=== PATIENT | female | born 1995 | race Caucasian/White ===

== ENCOUNTER 2016-10-09 10:31 | Outpatient (CLI) | payer MEDICAID | END 2016-10-09 10:32 | disposition home or self-care (01) | DX: R61 Generalized hyperhidrosis (principal) ==

== ENCOUNTER 2018-06-02 14:45 | Outpatient (CLI) | payer MEDICAID ==
[2018-06-02 20:00] LABS: BASOPHILS % (AUTO) 0.4 %; EOSINOPHILS # (AUTO) 0.1 10^3/uL (0.0-0.7); EOSINOPHILS % (AUTO) 2.3 %; HGB - HEMOGLOBIN 12.9 g/dL (12.0-16.0); LYMPHOCYTES # (AUTO) 2.6 10^3/uL (1.5-3.5); LYMPHOCYTES % (AUTO) 42.8 %; MEAN CORPUSCULAR HGB CONC 34.4 g/dL (32.0-36.0); MEAN CORPUSCULAR VOLUME 90.1 fL (81.0-99.0); MONOCYTES # (AUTO) 0.3 10^3/uL (0.0-1.0); MONOCYTES % (AUTO) 4.1 %; NEUTROPHILS # (AUTO) 3.1 10^3/uL (1.5-6.6); NEUTROPHILS % (AUTO) 50.4 %; PLT - PLATELET COUNT 198 10^3/uL (130-450); RED BLOOD COUNT 4.17 10^6/uL (4.20-5.40); RED CELL DISTRIBUTION WIDTH 13.2 % (12.0-15.0); WHITE BLOOD COUNT 6.2 x10^3/uL (4.8-10.8)
[2018-06-02 20:18] LABS: ALBUMIN 4.5 g/dL (3.2-5.5); ALBUMIN/GLOBULIN RATIO 1.6 (1.0-2.2); BILIRUBIN,TOTAL 0.5 mg/dL (0.2-1.0); CALCIUM 8.9 mg/dL (8.5-10.3); CREATININE 0.5 mg/dL (0.4-1.0); TOTAL PROTEIN 7.4 g/dL (6.7-8.2)
[2018-06-04 13:37] LABS: HEPATITIS C ANTIBODY REACTIVE (NON-REACTIVE)
[2018-06-05 19:47] LABS: HCV RNA QNT <1.18 NOT DETECTED Log IU/mL (NOT DETECTED); HCV RNA QUANT RT PCR <15 NOT DETECTED IU/mL (NOT DETECTED)
== END 2018-06-02 14:46 | disposition home or self-care (01) ==
LOC: LAB.N 14:45
PROVIDERS: ATTEND Nurse Practitioner Gerontology
DX: B19.20 Unspecified viral hepatitis C without hepatic coma (principal); Z13.9 Encounter for screening, unspecified
CPT/HCPCS: 36415; 80053; 81599; 84443; 85025; 86803; 87522

== ENCOUNTER 2018-10-10 11:00 | Emergency (ER) | payer MEDICAID ==
[2018-10-10 11:08] VITALS: BP 130/72
--- NOTE | 2018-10-10 12:22 | ED Physician Documentation ---
PD HPI URI - Stated complaint Stated Complaint: COLD SX - Chief complaint Chief Complaint: Heent - History obtained from History obtained from: Patient - History of Present Illness Timing - onset: Other (Sick for 2 days with cough and mild shortness of breath as well as fatigue but no fevers. She has had rhinorrhea and a sore throat. No possibility of . Her daughter is also sick.) Review of Systems Constitutional: denies: Fever, Chills Nose: reports: Rhinorrhea / runny nose Throat: reports: Sore throat Respiratory: reports: Cough PD PAST MEDICAL HISTORY - Past Medical History Past Medical History: Yes Psych: Depression - Past Surgical History Past Surgical History: No - Present Medications Home Medications: Ambulatory Orders Medication Instructions Recorded Confirmed Albuterol Sulf [Ventolin Hfa 1 - 2 puffs INH Q4HR PRN #1 inhaler 10/10/18 Inhaler] Buprenorphine HCl/Naloxone HCl 10/10/18 [Suboxone 8-2 mg Sl tab] Guaifenesin/Pseudoephedrne HCl 1 each PO BID PRN #20 tab.er.12h 10/10/18 [Mucinex D ER 600-60 mg Tablet] Hydrocodone/Chlorphen P-Stirex 5 ml PO BID PRN #90 ml 10/10/18 [Hydrocodone-Chlorphen ER Susp] predniSONE [Deltasone] 60 mg PO DAILY 5 Days tablet 10/10/18 - Allergies Allergies/Adverse Reactions: Allergies Allergy/AdvReac Type Severity Reaction Status Date / Time No Known Drug Allergies Allergy Verified 10/10/18 11:08 - Social History Does the pt smoke?: No Smoking Status: Never smoker Does the pt drink ETOH?: No Does the pt have substance abuse?: No - Immunizations Immunizations are current?: Yes PD ED PE NORMAL - Vitals Vital signs reviewed: Yes - General General: Alert and oriented X 3, No acute distress - HEENT HEENT: PERRL, EOMI, Ears normal, Pharynx benign (Cobblestoning but tonsils are normal) - Neck Neck: Supple, no meningeal sign, No bony TTP - Cardiac Cardiac: RRR, No murmur - Respiratory Respiratory: No respiratory distress, Other (Mild expiratory wheezes without focal findings) - Abdomen Abdomen: Non tender - Derm Derm: No rash - Neuro Neuro: Alert and oriented X 3, Normal speech Results - Vitals Vitals: Vital Signs - 24 hr 10/10/18 11:06 Temperature 36.0 C L Heart Rate 98 Respiratory 12 Rate Blood Pressure 130/72 O2 Saturation 95 Oxygen O2 Source Room air Departure - Departure Disposition: Home, Self Care Clinical Impression: Viral bronchitis Condition: Good Record reviewed to determine appropriate education?: Yes Instructions: ED Upper Resp Infec No Abx Tx Prescriptions: Albuterol Sulf [Ventolin Hfa Inhaler] 1 - 2 puffs INH Q4HR PRN #1 inhaler PRN Reason: Shortness Of Air/Wheezing Guaifenesin/Pseudoephedrne HCl [Mucinex D ER 600-60 mg Tablet] 1 each PO BID PRN #20 tab.er.12h PRN Reason: congestion Hydrocodone/Chlorphen P-Stirex [Hydrocodone-Chlorphen ER Susp] 5 ml PO BID PRN #90 ml PRN Reason: Cough predniSONE [Deltasone] 60 mg PO DAILY 5 Days tablet Comments: Return as needed for new or worsening symptoms. Drink plenty fluids. Follow-up with your doctor in a week if not better. Forms: Activity restrictions
== END 2018-10-10 12:35 | disposition home or self-care (01) ==
LOC: ED 11:00
DX: J20.8 Acute bronchitis due to other specified organisms (principal)
CPT/HCPCS: 99283

== ENCOUNTER 2019-04-20 10:50 | Outpatient (CLI) | payer MEDICAID ==
[2019-04-20 17:38] VITALS: BP 90/60
--- NOTE | 2019-04-20 17:38 | CONSULTATION NOTE ---
Information from patient questionnaire entered by Christine Paulino. I have reviewed and concur with the information entered by Christine Paulino. This document represents the service I personally performed and the decisions made by me, Yaz Mulligan MD, [facility]. - History of Present Illness Chief Complaint: Other (sleep paralysis) I had the pleasure of seeing Ms. Webster today regarding the possibility of her having a sleep disorder. As you know, she is a 23 year old lady who complains of sleep paralysis about 2 3 times a week. She even has them during naps. The episodes are scary because she is afraid that she would not be able to breath. Sometimes, they are preceded by tingly sensation. She also reports having hypnagogic hallucinations and nightmares for which she takes prazosin. She has occasional sudden weakness but not precipitated by laughter or when startled. The patient tells me that she normally goes to bed around 10 - 11 pm, and it takes her approximately 15 - 20 minutes to fall asleep. She has been told that she snores. She has never been observed to stop breathing in her sleep. She sleeps alone most of the time. She can recall waking up on the average of 3 - 4 times during the night. Most of the time she wakes up because of having to use the bathroom and bad dreams. She has never awakened because of her own snoring, choking, or having to gasp for air. There is not a lot of tossing and turning in her sleep. She talks in her sleep. In the morning she usually gets up out of the bed around 7 - 8 a.m. not feeling refreshed nor rested. She usually has morning headache. During the day she complains of feeling sleepy and fatigued. Her score on [place] Sleepiness Scale is 14 out of 24. She has fallen asleep while driving and has gone out of the darren. She usually takes naps during the day. Upon falling asleep during the day she reports having vivid dreams. She has symptoms of restless leg syndrome. She reports having impaired concentration during the day. [place] Sleepiness Scale Score: 14 - Past Medical History Past Medical History: Claustrophobia, Anxiety, Depression, Mood disorder, Other (opiod addiction) - Allergies/Home Medications Medications: suboxone and prazosin Allergies: NKDA - Social History The patient's occupation is a [employer]. Patient is Single and lives in [place]. Smoked in the past 12 months: Yes Cigarettes per day (20/pack): 10 Years of smokin Quit Date: 2017 Smoking Pack Years: 2.5 Alcohol use: No Caffeine use: Yes Amount and frequency: 1 cup - Family History Family history of sleep disordered breathing: Yes Family Hx Sleep Apnea: Mother: Snoring, Father: Snoring - Review of Systems Cardiovascular: reports: other: (endocarditis in the past) Respiratory: reports: shortness of breath Gastrointestinal: denies: heartburn, difficulty swallowing, nausea, vomitting, diarrhea, abdominal pain, other: Urinary: reports: frequency Neurological: reports: headaches Psychiatric: reports: anxiety, depression, mood disorder, claustrophobia, other: Ear/Nose/Throat: reports: tonsillectomy, wisdom teeth removed Endocrine: reports: increased appetite, increased urination Musculoskeletal: denies: joint pain, neck pain, back pain, joint swelling, muscle pain or cramping, mobility problems, other: Immunologic: denies: sneezing, rash, itching, allergies to food or environment, other: - Physical Examination Vital signs obtained and documented by: Dr. Mulligan Blood Pressure: 90/60 Heart Rate: 80 O2 Saturation: 98 Height: 5 ft 3 in Weight (kg): 97.069 kg Body Mass Index: 37.9 BMI Classification: Class 2 Neck circumference: 15 Mood/affect: normal HEENT: No craniofacial malformation Nostrils: patent to airflow Turbinates: normal Septum: midline Mouth and throat: narrow oropharynx Soft palate: long Hard palate: normal Uvula: normal Tongue: normal in size Tonsils: absent bilaterally Chin and jaw: normal size and position Neck: normal w/o lymphadenopathy or thyromegaly Heart: regular rate and rhythm Lungs: clear bilaterally Abdomen: soft Extremities: no edema or clubbing Neurologic: intact - Impression 1. Hypersomnia, with symptoms of sleep paralysis and hypnagogic hallucination. The patient may also have cataplexy but it is not clear. Narcolepsy is very possible. Therefore, I will order both the in-laboratory polysomnography and multiple sleep latency test (MSLT). Sleep-disordered breathing is a possibility given snore, narrow oropharynx, and obesity. I informed the patient of what the sleep studies involve and after some discussion, she agreed to proceed. - Plan 1. Schedule polysomnography and multiple sleep latency test (MSLT). 2. Avoid long distance driving or when feeling sleepy. 3. Avoid alcohol, sedative and muscle relaxant around bedtime. 4. Attempt to lose weight.
== END 2019-04-20 10:51 | disposition home or self-care (01) ==
LOC: SC 10:50
PROVIDERS: ATTEND Internal Medicine Pulmonary Disease
DX: G47.10 Hypersomnia, unspecified (principal); F51.5 Nightmare disorder
CPT/HCPCS: 99203; 99212

== ENCOUNTER 2019-08-31 19:37 | Outpatient (CLI) | payer MEDICAID | END 2019-08-31 19:38 | disposition home or self-care (01) | LOC: SC 19:37 | PROVIDERS: ATTEND Internal Medicine Pulmonary Disease | DX: G47.10 Hypersomnia, unspecified (principal); G47.53 Recurrent isolated sleep paralysis; R44.2 Other hallucinations | CPT/HCPCS: 95810 ==

== ENCOUNTER 2019-09-01 05:55 | Outpatient (CLI) | payer MEDICAID | END 2019-09-01 05:56 | disposition home or self-care (01) | LOC: SC 05:55 | PROVIDERS: ATTEND Internal Medicine Pulmonary Disease | DX: G47.10 Hypersomnia, unspecified (principal); G47.53 Recurrent isolated sleep paralysis | CPT/HCPCS: 95805 ==

== ENCOUNTER 2019-09-01 06:15 | Outpatient (CLI) | payer MEDICAID ==
[2019-09-01 11:01] LABS: MUDS CUTOFF CONCENTRATIONS CUTOFF CONC BELOW:
[2019-09-01 12:55] LABS: AMPHETAMINE SCREEN,URINE NEGATIVE (NEGATIVE); BENZODIAZEPINES SCREEN, URINE NEGATIVE (NEGATIVE); COCAINE SCREEN URINE NEGATIVE (NEGATIVE); METHADONE SCREEN, URINE NEGATIVE (NEGATIVE); METHAMPHETAMINES SCREEN, URINE NEGATIVE (NEGATIVE); OPIATE SCREEN, URINE NEGATIVE (NEGATIVE); OXYCODONE SCREEN, URINE NEGATIVE (NEGATIVE); PROPOXYPHENE SCREEN, URINE NEGATIVE (NEGATIVE); TRICYCLIC ANTIDEPRESSANT,URINE NEGATIVE (NEGATIVE)
== END 2019-09-01 23:59 | disposition home or self-care (01) ==
LOC: LAB.R 06:15
PROVIDERS: ATTEND Internal Medicine Pulmonary Disease
DX: R41.82 Altered mental status, unspecified (principal)
CPT/HCPCS: 80306

== ENCOUNTER 2019-09-04 20:07 | Emergency (ER) | payer MEDICAID ==
[2019-09-04 20:16] VITALS: BP 140/83
[2019-09-04] MEDS ORDERED: PSEUDOEPHEDRINE 30 MG TABLET PO STA (21:19)
--- NOTE | 2019-09-04 21:20 | ED Physician Documentation ---
PD HPI URI - Stated complaint Stated Complaint: SORE THROAT, BODY ACHES, EARS PLUGGED - Chief complaint Chief Complaint: Heent - History obtained from History obtained from: Patient - History of Present Illness Timing - onset: How many weeks ago (1) Timing duration: Weeks (1) Timing details: Gradual onset Pain level max: 5 Pain level now: 5 Associated symptoms: Nasal congestion, Sore throat. No: Fever, Rhinorrhea, Swollen nodes, Dry cough Contributing factors: No: Sick contact, Travel, Immunocompromised, Unimmunized, COPD / asthma Improves by: Other (motrin) Worsened by: Other (sleeping, worse in the am) Review of Systems Constitutional: denies: Fever Respiratory: denies: Cough GI: denies: Vomiting : denies: Now EGA Skin: denies: Rash PD PAST MEDICAL HISTORY - Past Medical History Past Medical History: No Cardiovascular: None Respiratory: None Neuro: None Endocrine/Autoimmune: None GI: None FACILITY SERVICE ASSOCIATE: None : None HEENT: None Psych: Depression Musculoskeletal: None Derm: None - Past Surgical History Past Surgical History: No - Present Medications Home Medications: Ambulatory Orders Medication Instructions Recorded Confirmed Albuterol Sulf [Ventolin Hfa 1 - 2 puffs INH Q4HR PRN #1 inhaler 10/10/18 Inhaler] Buprenorphine HCl/Naloxone HCl 10/10/18 [Suboxone 8-2 mg Sl tab] Guaifenesin/Pseudoephedrne HCl 1 each PO BID PRN #20 tab.er.12h 10/10/18 [Mucinex D ER 600-60 mg Tablet] Hydrocodone/Chlorphen P-Stirex 5 ml PO BID PRN #90 ml 10/10/18 [Hydrocodone-Chlorphen ER Susp] predniSONE [Deltasone] 60 mg PO DAILY 5 Days tablet 10/10/18 Cetirizine HCl/Pseudoephedrine 1 each PO BID PRN #30 tab.er.12h 09/04/19 [Zyrtec-D Tablet] - Allergies Allergies/Adverse Reactions: Allergies Allergy/AdvReac Type Severity Reaction Status Date / Time No Known Drug Allergies Allergy Verified 09/04/19 20:16 - Social History Does the pt smoke?: No Smoking Status: Never smoker Does the pt drink ETOH?: No Does the pt have substance abuse?: Yes Substance Use and Type: Heroin, Prescription Pills - Immunizations Immunizations are current?: Yes - POLST Patient has POLST: No PD ED PE NORMAL - Vitals Vital signs reviewed: Yes - General General: Alert and oriented X 3, No acute distress, Well developed/nourished - HEENT HEENT: PERRL, Ears normal, Moist mucous membranes, Other (Posterior pharyngeal cobblestoning. No exudates. Normal phonation. No trismus. Uvula midline) - Neck Neck: Supple, no meningeal sign, No adenopathy - Cardiac Cardiac: RRR, Strong equal pulses - Respiratory Respiratory: No respiratory distress, Clear bilaterally - Abdomen Abdomen: Soft, Non tender, Non distended - Derm Derm: Warm and dry, No rash - Neuro Neuro: Alert and oriented X 3 - Psych Psych: Normal mood, Normal affect Results - Vitals Vitals: Vital Signs - 24 hr 09/04/19 20:13 Temperature 36.5 C Heart Rate 93 Respiratory 18 Rate Blood Pressure 140/83 H O2 Saturation 100 Oxygen O2 Source Room air - Labs Labs: Laboratory Tests 09/04/19 20:20 Group A Strep Rapid Negative PD MEDICAL DECISION MAKING - ED course Complexity details: considered differential, d/w patient ED course: Patient with what appears to be postnasal drip. Will place on decongestants for home. No evidence of strep pharyngitis. No evidence of abscess. Patient counseled regarding signs and symptoms for which I believe and urgent re- evaluation would be necessary. Patient with good understanding of and agreement to plan and is comfortable going home at this time This document was made in part using voice recognition software. While efforts are made to proofread this document, sound alike and grammatical errors may occur. Departure - Departure Disposition: 01 Home, Self Care Clinical Impression: Post-nasal drip Condition: Good Instructions: ED Viral Syndrome Follow-Up: Carla Martinez ARNP [Primary Care Provider] - Within 1 week Prescriptions: Cetirizine HCl/Pseudoephedrine [Zyrtec-D Tablet] 1 each PO BID PRN #30 tab.er.12h PRN Reason: nasal congestion Comments: You appear to be having postnasal drip. Try the decongestants. Follow-up with your doctor as needed for further care. Discharge Date/Time: 09/04/19 21:32
== END 2019-09-04 21:32 | disposition home or self-care (01) ==
LOC: ED 20:07
DX: R09.82 Postnasal drip (principal)
CPT/HCPCS: 87070; 87430; 99283; 99284; A9270

== ENCOUNTER 2019-10-18 11:12 | Outpatient (CLI) | payer MEDICAID ==
--- NOTE | 2019-10-18 19:54 | SLEEP CARE CONSULTATION ---
Information from patient questionnaire entered by Christine Paulino. I have reviewed and concur with the information entered by Christine Paulino. This document represents the service I personally performed and the decisions made by me, Yaz Mulligan MD, [facility]. History of Present Illness Initial [place] Sleepiness Scale score: 14 Current [place] Sleepiness Scale score: 16 Additional HPI information: HPI: returned for follow up of the sleep study (polysomnography + multiple sleep latency test) she had on 08/3109/01/19. The polysomnography was normal. There was no significant sleep disordered breathing or periodic leg movement of sleep. Her multiple sleep latency test (MSLT) showed reduced mean sleep latency of 3.5 minutes. There was sleep onset REM period in one nap. The patient did take Suboxone the morning of the test. Her urine tox screen was negative. The patient was informed of these findings. I explained to her that her night sleep study was normal but that the MSLT was abnormal for short mean sleep latency consistent with her reports of excessive daytime sleepiness. The one sleep onset REM period is equivocal for narcolepsy. Allergies and Home Medications Drug allergies reviewed: Yes Home medication list reviewed: Yes (buprenorphrine, trazodone) Review of Systems Review of systems same as previous: Yes Physical Exam Height: 5 ft 3 in Weight: 214 lb Body Mass Index: 37.9 BMI Classification: Obesity Class 2 Impression and Plan IMPRESSION: 1. 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 Her main complaint is actually frequent sleep paralysis. She also has excessive daytime sleepiness. She has had the symptoms all her life. The fact that she is also on Suboxone makes the diagnosis less clear. I will treat her daytime hypersomnolence with modafinil. Her sleep paralysis may improve with an antidepressant. Because she is already under psychiatric care from a local provider, I will leave the decision to the person. Getting adequate sleep is helpful. PLAN: 1. Prescription made for modafinil 100 200 mg in the morning on as needed basis daytime sleepiness. 2. Discuss with her psychiatrist provider regarding antidepressants. Effexor may help with sleep paralysis. 3. Utilize non-hormonal control method. She states that she is planning to use copper IUD. 4. Avoid sleeping supine. 5. Allow at least 8 hours for sleeping at night. 6. Return in one - two months for follow up. I will assess her response to the medication at that time. I spent 100% of this visit face to face with the patient with greater than 50% of this was spent time counseling the patient and coordination of care.
== END 2019-10-18 11:13 | disposition home or self-care (01) ==
LOC: SC 11:12
PROVIDERS: ATTEND Internal Medicine Pulmonary Disease
DX: G47.10 Hypersomnia, unspecified (principal); G47.53 Recurrent isolated sleep paralysis
CPT/HCPCS: 99212; 99213

== ENCOUNTER 2019-12-21 16:49 | Outpatient (CLI) | payer MEDICAID ==
--- NOTE | 2019-12-21 14:38 | SLEEP CARE CONSULTATION ---
Information from patient questionnaire entered by Christine Paulino. I have reviewed and concur with the information entered by Christine Paulino. This document represents the service I personally performed and the decisions made by me, Yaz Mulligan MD, [facility]. History of Present Illness Reason for follow up: one month (MEDICATION CHECK IN) Prior sleep studies: Yes HPI additional information: To minimize the risk of COVID-19 exposure, the patient has requested and con sented to this telephone visit. The patient also agrees to having his insurance billed. HPI: Ms. Webster was called for follow up on modafinil prescribed for suspected narcolepsy without cataplexy. The diagnosis was not clear because she also take Suboxone which could cause excessive daytime sleepiness. She also checked with her psychiatrist prior to taking the medication. The patient reports jitteriness and feeling social awkwardness on the medication. She stopped taking it after 2 doses. Her psychiatrist started her on Wellbutrin which helps with the sleep paralysis. Subjective Initial [place] Sleepiness Scale score: 14 Allergies and Home Medications Drug allergies reviewed: Yes Home medication list reviewed: Yes Review of Systems Review of systems same as previous: Yes Physical Exam Height: 5 ft 3 in Impression and Plan IMPRESSION: 1. Sleep Paralysis, improved with Wellbutrin. The diagnosis of narcolepsy will remain uncertain at this time. She should be reevaluated in the future if she come off all psychotropic meds. PLAN: 1. Discontinue modafinil as the patient has already done. 2. Continue to follow up with psychiatrist. 3. Return to the sleep clinic on as needed basis. Visit Type: Telehealth Phone Location of Provider: Home Patient agrees and consents to this telehealth visit type: Yes Time Spent with Patient (minutes): 6 Provider Statement: I spent 100% of the Telehealth Phone Call with the patient with greater than 50% spent counseling the patient and coordination of care.
== END 2019-12-21 16:50 | disposition home or self-care (01) ==
LOC: SC 16:49
PROVIDERS: ATTEND Internal Medicine Pulmonary Disease
DX: G47.53 Recurrent isolated sleep paralysis (principal)

== ENCOUNTER 2020-03-10 08:00 | Outpatient (CLI) | payer MEDICAID ==
[2020-03-14 10:13] LABS: HSV 2 IGG TYPE SPECIFIC AB <0.90 index
== END 2020-03-10 23:59 | disposition home or self-care (01) ==
LOC: LAB.WCP 08:00
PROVIDERS: ATTEND Nurse Practitioner Family
DX: B00.9 Herpesviral infection, unspecified (principal)
CPT/HCPCS: 36415; 81599; 86695; 86696

== ENCOUNTER 2020-10-18 12:38 | Emergency (ER) | payer MEDICAID ==
--- NOTE | 2020-10-18 13:27 | ED Physician Documentation ---
History of Present Illness - Stated complaint Stated Complaint: SWELLING - Chief complaint Chief Complaint: General - History obtained from History obtained from: Patient - History of Present Illness Pain level max: 3 Pain level now: 2 - Additonal information Additional information: Patient is a 25-year-old female who presents to the emergency department stating that she has had swelling when she wakes up in the morning for the past week or so. She states her hands feel very swollen and tight. The tight feeling in her hands has been present for several weeks. No recent illnesses or injury. She states occasionally she feels a tightness in her chest, this normally lasts for a few minutes at a time. Nothing makes it better or worse. No fevers. No chills. No nausea or vomiting. No abdominal pain. The patient's only home medication is Suboxone. Review of Systems Ten Systems: 10 systems reviewed and negative Constitutional: denies: Fever, Chills Ears: denies: Ear pain Nose: denies: Rhinorrhea / runny nose, Congestion Throat: denies: Sore throat Cardiac: denies: Chest pain / pressure Respiratory: denies: Cough GI: denies: Nausea, Vomiting, Diarrhea Skin: denies: Rash Musculoskeletal: denies: Neck pain, Back pain Neurologic: denies: Headache PD PAST MEDICAL HISTORY - Past Medical History Cardiovascular: None Respiratory: None Neuro: None Endocrine/Autoimmune: None GI: None PARADICHLOROBENZENE TENDER: None : None HEENT: None Psych: Depression Musculoskeletal: None Derm: None - Past Surgical History Past Surgical History: No - Present Medications Home Medications: Ambulatory Orders Medication Instructions Recorded Confirmed Albuterol Sulf [Ventolin Hfa 1 - 2 puffs INH Q4HR PRN #1 inhaler 10/10/18 Inhaler] Buprenorphine HCl/Naloxone HCl 10/10/18 [Suboxone 8-2 mg Sl tab] Guaifenesin/Pseudoephedrne HCl 1 each PO BID PRN #20 tab.er.12h 10/10/18 [Mucinex D ER 600-60 mg Tablet] Hydrocodone/Chlorphen P-Stirex 5 ml PO BID PRN #90 ml 10/10/18 [Hydrocodone-Chlorphen ER Susp] predniSONE [Deltasone] 60 mg PO DAILY 5 Days tablet 10/10/18 Cetirizine HCl/Pseudoephedrine 1 each PO BID PRN #30 tab.er.12h 09/04/19 [Zyrtec-D Tablet] predniSONE [Deltasone] 40 mg PO DAILY #10 tablet 10/18/20 - Allergies Allergies/Adverse Reactions: Allergies Allergy/AdvReac Type Severity Reaction Status Date / Time No Known Drug Allergies Allergy Verified 10/18/20 12:49 - Social History Does the pt smoke?: No Smoking Status: Never smoker Does the pt drink ETOH?: No Does the pt have substance abuse?: Yes - Immunizations Immunizations are current?: Yes - POLST Patient has POLST: No PD ED PE NORMAL - Vitals Vital signs reviewed: Yes - General General: Alert and oriented X 3, No acute distress, Well developed/nourished - HEENT HEENT: PERRL, Moist mucous membranes - Neck Neck: Supple, no meningeal sign - Cardiac Cardiac: RRR, Strong equal pulses - Respiratory Respiratory: No respiratory distress, Clear bilaterally - Abdomen Abdomen: Soft, Non tender, Non distended - Derm Derm: Warm and dry, No rash - Extremities Extremities: No edema - Neuro Neuro: Alert and oriented X 3 - Psych Psych: Normal mood, Normal affect Results - Vitals Vitals: Vital Signs - 24 hr 10/18/20 10/18/20 10/18/20 12:43 15:43 16:24 Temperature 36.0 C L 36.9 C 36.1 C L Heart Rate 89 81 78 Respiratory 16 18 18 Rate Blood Pressure 144/59 H 120/66 119/69 O2 Saturation 97 98 99 Oxygen O2 Source Room air - Labs Labs: Laboratory Tests 10/18/20 10/18/20 10/18/20 14:20 14:20 14:20 WBC 7.3 RBC 4.38 Hgb 12.9 Hct 39.1 MCV 89.3 MCH 29.5 MCHC 33.0 RDW 12.1 Plt Count 185 MPV 10.2 Neut # (Auto) 3.6 Lymph # (Auto) 3.0 [place] # (Auto) 0.5 Eos # (Auto) 0.1 Baso # (Auto) 0.1 Absolute Nucleated RBC 0.00 Nucleated RBC % 0.0 Sodium 135 Potassium 3.7 Chloride 105 Carbon Dioxide 22 Anion Gap 8.0 BUN 14 Creatinine 0.6 Estimated GFR (MDRD) 121 Glucose 88 Calcium 9.2 Total Bilirubin 0.5 AST 22 ALT 25 Alkaline Phosphatase 50 Troponin I High Sens < 2.3 L Total Protein 5.5 L Albumin < 1.0 L Globulin 4.5 H Albumin/Globulin Ratio 0.2 L Lipase 28 Urine Color Urine Clarity Urine pH Ur Specific [place] Urine Protein Urine Glucose (UA) Urine Ketones Urine Occult Blood Urine Nitrite Urine Bilirubin Urine Urobilinogen Ur Leukocyte Esterase Ur Microscopic Review Urine Culture Comments 10/18/20 15:20 WBC RBC Hgb Hct MCV MCH MCHC RDW Plt Count MPV Neut # (Auto) Lymph # (Auto) [place] # (Auto) Eos # (Auto) Baso # (Auto) Absolute Nucleated RBC Nucleated RBC % Sodium Potassium Chloride Carbon Dioxide Anion Gap BUN Creatinine Estimated GFR (MDRD) Glucose Calcium Total Bilirubin AST ALT Alkaline Phosphatase Troponin I High Sens Total Protein Albumin Globulin Albumin/Globulin Ratio Lipase Urine Color YELLOW Urine Clarity CLEAR Urine pH 6.0 Ur Specific [place] 1.025 Urine Protein NEGATIVE Urine Glucose (UA) NEGATIVE Urine Ketones NEGATIVE Urine Occult Blood NEGATIVE Urine Nitrite NEGATIVE Urine Bilirubin NEGATIVE Urine Urobilinogen 0.2 (NORMAL) Ur Leukocyte Esterase NEGATIVE Ur Microscopic Review NOT INDICATED Urine Culture Comments NOT INDICATED PD MEDICAL DECISION MAKING - ED course Complexity details: reviewed results, re-evaluated patient, considered differential, d/w patient ED course: The cause of her symptoms are unclear. The hands via the pictures that she showed me appear to be more consistent with allergic reaction. We will trial on steroids for this. Her albumin is less than 1, unclear etiology. There is no protein in her urine. Doubt nephrotic syndrome. Possible gastroenteropathy issue? Possible lab error. We will have her recheck this with her doctor next week. Patient is well-appearing, nontoxic. Afebrile. Patient counseled regarding signs and symptoms for which I believe and urgent re-evaluation would be necessary. Patient with good understanding of and agreement to plan and is comfortable going home at this time This document was made in part using voice recognition software. While efforts are made to proofread this document, sound alike and grammatical errors may occur. Departure - Departure Disposition: 01 Home, Self Care Clinical Impression: Hypoalbuminemia Allergic reaction Qualifiers: Encounter type: initial encounter Qualified Code(s): T78.40XA - Allergy, unspecified, initial encounter Condition: Good Instructions: ED Allergic Reaction General Other Follow-Up: Remy Wyatt DO [Primary Care Provider] - Within 1 week Prescriptions: predniSONE [Deltasone] 40 mg PO DAILY #10 tablet Comments: The cause of your symptoms is unclear today. We will start you on steroids for the rash on the hands. We will see how this progresses. Your albumin levels are also very low. These should be rechecked next week with your doctor to see if they remain low. You do not have any protein in your urine today. The cause of the low albumin is unclear at this time and will need further work-up if it is still present on your laboratory testing upon recheck. Discharge Date/Time: 10/18/20 16:29
[2020-10-18] MEDS ORDERED: predniSONE 20 MG TABLET PO STA (13:28)
--- NOTE | 2020-10-18 13:45 | XRAY Report ---
PROCEDURE: Chest 1 View X-Ray INDICATIONS: chest pain TECHNIQUE: One view of the chest was acquired. COMPARISON: None FINDINGS: Surgical changes and devices: None. Lungs and pleura: No pleural effusions or pneumothorax. Lungs are clear. Mediastinum: Mediastinal contours appear normal. Heart size is normal. Bones and chest wall: No suspicious bony lesions. Overlying soft tissues appear unremarkable. IMPRESSION: No acute process. Reviewed by: Loi Silva MD on 10/18/2020 1:44 PM [facility] Approved by: Loi Silva MD on 10/18/2020 1:44 PM [facility] Station ID: [id number]
[2020-10-18 14:25] LABS: BASOPHILS # (AUTO) 0.1 10^3/uL (0.0-0.1); BASOPHILS % (AUTO) 0.7 %; EOSINOPHILS # (AUTO) 0.1 10^3/uL (0.0-0.7); EOSINOPHILS % (AUTO) 1.5 %; HGB - HEMOGLOBIN 12.9 g/dL (12.0-16.0); LYMPHOCYTES % (AUTO) 41.3 %; MEAN CORPUSCULAR HEMOGLOBIN 29.5 pg (27.0-31.0); MEAN CORPUSCULAR VOLUME 89.3 fL (81.0-99.0); MEAN PLATELET VOLUME 10.2 fL (7.9-10.8); MONOCYTES # (AUTO) 0.5 10^3/uL (0.0-1.0); MONOCYTES % (AUTO) 7.1 %; NEUTROPHILS # (AUTO) 3.6 10^3/uL (1.5-6.6); NEUTROPHILS % (AUTO) 48.9 %; PLT - PLATELET COUNT 185 10^3/uL (130-450); RED BLOOD COUNT 4.38 10^6/uL (4.20-5.40); RED CELL DISTRIBUTION WIDTH 12.1 % (12.0-15.0); WHITE BLOOD COUNT 7.3 x10^3/uL (4.8-10.8)
[2020-10-18 14:49] LABS: ALKALINE PHOSPHATASE 50 IU/L (42-121); ALT ALANINE AMINOTRANSFERASE 25 IU/L (10-60); AST ASPARTATE AMINOTRANSFERASE 22 IU/L (10-42); BILIRUBIN,TOTAL 0.5 mg/dL (0.2-1.0); CALCIUM 9.2 mg/dL (8.5-10.3); CARBON DIOXIDE - CO2 22 mmol/L (21-32); CHLORIDE 105 mmol/L (101-111); GLUCOSE 88 mg/dL (70-100); TOTAL PROTEIN 5.5 g/dL (6.7-8.2)
[2020-10-18 14:50] LABS: ALBUMIN < 1.0 g/dL (3.2-5.5); ALBUMIN/GLOBULIN RATIO 0.2 (1.0-2.2)
[2020-10-18 15:43] LABS: BILIRUBIN,URINE NEGATIVE (NEGATIVE); CLARITY,URINE CLEAR (CLEAR); GLUCOSE, URINE (UA) NEGATIVE (NEGATIVE); KETONES,URINE (UA) NEGATIVE (NEGATIVE); LEUKOCYTE ESTERASE, URINE NEGATIVE (NEGATIVE); NITRITE,URINE NEGATIVE (NEGATIVE); OCCULT BLOOD,URINE NEGATIVE (NEGATIVE); PROTEIN,URINE NEGATIVE (NEGATIVE); UROBILINOGEN,URINE 0.2 (NORMAL) E.U./dL (NORMAL)
[2020-10-18 16:01] LABS: BUN - BLOOD UREA NITROGEN 14 mg/dL (6-20); CREATININE 0.6 mg/dL (0.4-1.0)
[2020-10-18 16:02] LABS: LIPASE 28 U/L (22-51)
[2020-10-18 16:24] VITALS: BP 119/69
== END 2020-10-18 16:29 | disposition home or self-care (01) ==
LOC: ED 12:38
DX: T78.40XA Allergy, unspecified, initial encounter (principal); E88.09 Other disorders of plasma-protein metabolism, not elsewhere classified
CPT/HCPCS: 36415; 71045; 80053; 81003; 83690; 84484; 85025; 93005; 99284; J7512; 81001; 87086

== ENCOUNTER 2020-10-31 07:00 | Outpatient (CLI) | payer MEDICAID ==
[2020-10-31 12:13] LABS: HGB - HEMOGLOBIN 11.7 g/dL (12.0-16.0); MEAN CORPUSCULAR HEMOGLOBIN 29.6 pg (27.0-31.0); MEAN CORPUSCULAR HGB CONC 32.7 g/dL (32.0-36.0); MEAN CORPUSCULAR VOLUME 90.6 fL (81.0-99.0); MEAN PLATELET VOLUME 10.7 fL (7.9-10.8); RED BLOOD COUNT 3.95 10^6/uL (4.20-5.40); RED CELL DISTRIBUTION WIDTH 11.9 % (12.0-15.0); WHITE BLOOD COUNT 5.2 x10^3/uL (4.8-10.8)
[2020-10-31 12:24] LABS: CRP - C-REACTIVE PROTEIN < 1.0 mg/dL (0-1.0)
[2020-10-31 12:25] LABS: URIC ACID 4.5 mg/dL (2.6-7.2)
[2020-10-31 12:37] LABS: RHEUMATOID FACTOR NEGATIVE (Negative)
[2020-11-01 12:18] LABS: HEPATITIS B SURFACE ANTIGEN NON-REACTIVE (NON-REACTIVE)
[2020-11-02 13:07] LABS: DNA (DS) ANTIBODY 1 IU/mL
[2020-11-02 22:51] LABS: CYCLIC CITRULL PEPTIDE CCP IGG <16 UNITS
[2020-11-03 08:06] LABS: ANA SCREEN NEGATIVE (NEGATIVE)
[2020-11-04 16:17] LABS: HCV RNA QUANT RT PCR <15 NOT DETECTED IU/mL
== END 2020-10-31 23:59 | disposition home or self-care (01) ==
LOC: LAB.WCP 07:00
PROVIDERS: ATTEND Family Medicine
DX: E88.09 Other disorders of plasma-protein metabolism, not elsewhere classified (principal); R22.30 Localized swelling, mass and lump, unspecified upper limb; M25.50 Pain in unspecified joint; B19.20 Unspecified viral hepatitis C without hepatic coma
CPT/HCPCS: 36415; 84443; 84550; 85025; 85027; 85651; 86038; 86140; 86200; 86225; 86430; 87340; 87522

== ENCOUNTER 2020-11-06 08:00 | Outpatient (CLI) | payer MEDICAID ==
[2020-11-06 12:38] LABS: TOTAL VOLUME 24HRS,URINE 700 mL
[2020-11-06 12:56] LABS: TOTAL PROTEIN,URINE TIMED < 6 mg/dL
[2020-11-07 23:17] LABS: CREATININE 24 HOUR,URINE 1821 mg/24h (600-1800); CREATININE,URINE 260.2 mg/dL
== END 2020-11-06 23:59 | disposition home or self-care (01) ==
LOC: LAB.R 08:00
PROVIDERS: ATTEND Family Medicine
DX: E88.09 Other disorders of plasma-protein metabolism, not elsewhere classified (principal)
CPT/HCPCS: 82570; 84156

== ENCOUNTER 2020-11-15 08:00 | Outpatient (CLI) | payer MEDICAID ==
[2020-11-15 18:25] LABS: CALCIUM 9.3 mg/dL (8.5-10.3); CREATININE 0.6 mg/dL (0.4-1.0); POTASSIUM 3.7 mmol/L (3.5-5.0)
[2020-11-16 10:26] LABS: HIV AG/AB 4TH GEN NON-REACTIVE (NON-REACTIVE)
[2020-11-16 12:17] LABS: HEPATITIS C ANTIBODY REACTIVE (NON-REACTIVE)
[2020-11-17 20:56] LABS: HCV RNA QNT <1.18 NOT DETECTED Log IU/mL (NOT DETECTED); HCV RNA QUANT RT PCR <15 NOT DETECTED IU/mL (NOT DETECTED)
== END 2020-11-15 23:59 | disposition home or self-care (01) ==
LOC: LAB.WCP 08:00
PROVIDERS: ATTEND Family Medicine
DX: R60.9 Edema, unspecified (principal); Z11.3 Encounter for screening for infections with a predominantly sexual mode of transmission; N39.0 Urinary tract infection, site not specified
CPT/HCPCS: 36415; 80048; 86592; 86593; 86780; 86803; 87086; 87181; 87389

== ENCOUNTER 2021-01-22 08:00 | Outpatient (CLI) | payer MEDICAID ==
[2021-01-22 13:45] LABS: BILIRUBIN,URINE NEGATIVE (NEGATIVE); GLUCOSE, URINE (UA) NEGATIVE (NEGATIVE); KETONES,URINE (UA) NEGATIVE (NEGATIVE); LEUKOCYTE ESTERASE, URINE NEGATIVE (NEGATIVE); NITRITE,URINE POSITIVE (NEGATIVE); OCCULT BLOOD,URINE NEGATIVE (NEGATIVE); PH,URINE 5.5 PH (5.0-7.5); PROTEIN,URINE NEGATIVE (NEGATIVE); UROBILINOGEN,URINE 0.2 (NORMAL) E.U./dL (NORMAL)
[2021-01-22 13:46] LABS: CLARITY,URINE HAZY (CLEAR)
[2021-01-22 14:01] LABS: BACTERIA,URINE Many /HPF (None Seen); RBC,URINE 0-5 /HPF (0-5); SQUAMOUS EPITHELIAL CELL,UR MANY Squamous (<= Few)
[2021-01-22 14:02] LABS: AMORPHOUS SEDIMENT,UR Moderate /LPF; CRYSTALS,URINE >50 Calcium Oxalate /LPF
[2021-01-22 21:28] LABS: CHLAMYDIA TRACHOMATIS DNA NEGATIVE (NEGATIVE); NEISSERIA GONORRHOEAE DNA NEGATIVE (NEGATIVE); TRICHOMONAS VAGINALIS DNA NEGATIVE (NEGATIVE)
== END 2021-01-22 23:59 | disposition home or self-care (01) ==
LOC: LAB.R 08:00
PROVIDERS: ATTEND Internal Medicine
DX: R30.0 Dysuria (principal); Z11.3 Encounter for screening for infections with a predominantly sexual mode of transmission
CPT/HCPCS: 81001; 87086; 87491; 87591; 87661

== ENCOUNTER 2021-04-08 13:13 | Emergency (ER) | payer MEDICAID ==
[2021-04-08 13:39] VITALS: BP 132/69
--- NOTE | 2021-04-08 14:14 | ED Physician Documentation ---
PD HPI HEADACHE - Stated complaint Stated Complaint: COUGH,CHILLS,ABD PX,SORE THROAT,CHEST PRESSURE - Chief complaint Chief Complaint: Heent - History obtained from History obtained from: Patient - Additional information Additional information: For about 2 days she has had nonproductive cough, chills, sore throat, some abdominal pain, but she thinks the abdominal pain is because she is preparing to have her menses. No measured fevers. No shortness of breath. Review of Systems Constitutional: reports: Chills, Myalgias. denies: Fever Ears: denies: Loss of hearing, Ear pain Nose: reports: Rhinorrhea / runny nose Throat: reports: Sore throat Cardiac: denies: Chest pain / pressure, Palpitations Respiratory: reports: Cough. denies: Dyspnea GI: denies: Nausea, Vomiting PD PAST MEDICAL HISTORY - Past Medical History Past Medical History: Yes Cardiovascular: None Respiratory: None Neuro: None Endocrine/Autoimmune: None GI: None TECHNICAL INSTRUCTOR: None : None HEENT: None Psych: Depression Musculoskeletal: None Derm: None - Past Surgical History Past Surgical History: No - Present Medications Home Medications: Ambulatory Orders Medication Instructions Recorded Confirmed Albuterol Sulf [Ventolin Hfa 1 - 2 puffs INH Q4HR PRN #1 inhaler 10/10/18 Inhaler] Buprenorphine HCl/Naloxone HCl 10/10/18 [Suboxone 8-2 mg Sl tab] Guaifenesin/Pseudoephedrne HCl 1 each PO BID PRN #20 tab.er.12h 10/10/18 [Mucinex D ER 600-60 mg Tablet] Hydrocodone/Chlorphen P-Stirex 5 ml PO BID PRN #90 ml 10/10/18 [Hydrocodone-Chlorphen ER Susp] predniSONE [Deltasone] 60 mg PO DAILY 5 Days tablet 10/10/18 Cetirizine HCl/Pseudoephedrine 1 each PO BID PRN #30 tab.er.12h 09/04/19 [Zyrtec-D Tablet] predniSONE [Deltasone] 40 mg PO DAILY #10 tablet 10/18/20 Albuterol Sulf [Ventolin Hfa 1 - 2 puffs INH Q4HR PRN #1 inhaler 04/08/21 Inhaler] Benzonatate [Tessalon] 200 mg PO QID PRN #20 cap 04/08/21 Ibuprofen [Motrin] 800 mg PO Q8H PRN #30 tablet 04/08/21 - Allergies Allergies/Adverse Reactions: Allergies Allergy/AdvReac Type Severity Reaction Status Date / Time No Known Drug Allergies Allergy Verified 04/08/21 13:39 - Social History Does the pt smoke?: No Smoking Status: Never smoker Does the pt drink ETOH?: No Does the pt have substance abuse?: Yes - Immunizations Immunizations are current?: Yes - POLST Patient has POLST: No PD ED PE NORMAL - Vitals Vital signs reviewed: Yes - General General: Alert and oriented X 3, No acute distress - HEENT HEENT: PERRL, EOMI - Neck Neck: Supple, no meningeal sign, No bony TTP - Cardiac Cardiac: RRR, No murmur - Respiratory Respiratory: No respiratory distress, Other (Mild wheezes and rhonchi both ba ses) - Abdomen Abdomen: Normal bowel sounds, Soft, Non tender - Back Back: No CVA TTP, No spinal TTP - Derm Derm: Normal color, Warm and dry - Extremities Extremities: No edema, No calf tenderness / cord - Neuro Neuro: Alert and oriented X 3, Normal speech Results - Vitals Vitals: Vital Signs - 24 hr 04/08/21 13:35 Temperature 36.7 C Heart Rate 84 Respiratory 16 Rate Blood Pressure 132/69 H O2 Saturation 99 Oxygen O2 Source Room air PD MEDICAL DECISION MAKING - ED course ED course: 25-year-old woman with viral syndrome, she is not immunized against Covid, she was encouraged to do so but in the meantime would like to be tested for same. Otherwise just probably needs symptomatic treatment for nonspecific viral URI. Departure - Departure Disposition: 01 Home, Self Care Clinical Impression: Viral bronchitis, Viral syndrome Condition: Good Record reviewed to determine appropriate education?: Yes Instructions: ED Viral Syndrome Prescriptions: Albuterol Sulf [Ventolin Hfa Inhaler] 1 - 2 puffs INH Q4HR PRN #1 inhaler PRN Reason: Shortness Of Air/Wheezing Ibuprofen [Motrin] 800 mg PO Q8H PRN #30 tablet PRN Reason: PAIN &/OR FEVER Benzonatate [Tessalon] 200 mg PO QID PRN #20 cap PRN Reason: Cough Comments: You have a Covid test pending. You need to self quarantine until the result is done and negative. Do not leave your house. Do not get near anybody. The results should be done in 48 to 72 hours. We will call with a positive result, the fastest way to get a negative result for confirmation though is to go to the hospital website at [email or web address], click on the my [employer] tab and sign up for the patient portal. If any friends or family get sick and would like to have a Covid test done, but do not have signs or symptoms that would necessitate being hospitalized, we encourage testing through our coronavirus swabbing station, call [phone] to schedule an appointment. Forms: Activity restrictions
== END 2021-04-08 14:19 | disposition home or self-care (01) ==
LOC: ED 13:13
DX: J20.8 Acute bronchitis due to other specified organisms (principal); Z20.822 Contact with and (suspected) exposure to COVID-19
CPT/HCPCS: 99283

== ENCOUNTER 2021-04-30 08:00 | Outpatient (CLI) | payer MEDICAID ==
[2021-04-30 20:36] LABS: BACTERIAL VAGINOSIS DNA POSITIVE (NEGATIVE); CANDIDA GLABRATA DNA NEGATIVE (NEGATIVE); CANDIDA GROUP DNA NEGATIVE (NEGATIVE); CANDIDA KRUSEI DNA NEGATIVE (NEGATIVE); TRICHOMONAS VAGINALIS DNA NEGATIVE (NEGATIVE)
[2021-04-30 22:18] LABS: CHLAMYDIA TRACHOMATIS DNA NEGATIVE (NEGATIVE); NEISSERIA GONORRHOEAE DNA NEGATIVE (NEGATIVE); TRICHOMONAS VAGINALIS DNA NEGATIVE (NEGATIVE)
== END 2021-04-30 23:59 | disposition home or self-care (01) ==
LOC: LAB.N 08:00
PROVIDERS: ATTEND Physician Assistant Medical
DX: N76.0 Acute vaginitis (principal)
CPT/HCPCS: 87491; 87591; 87661; 87801

== ENCOUNTER 2021-06-13 07:19 | Outpatient (CLI) | payer MEDICAID | END 2021-06-13 23:59 | disposition home or self-care (01) | LOC: LAB.N 07:19 | PROVIDERS: ATTEND Nurse Practitioner | DX: R05 Cough (principal); Z20.822 Contact with and (suspected) exposure to COVID-19 ==

== ENCOUNTER 2021-06-27 08:00 | Outpatient (CLI) | payer MEDICAID ==
--- NOTE | 2021-06-27 17:14 | XRAY Report ---
PROCEDURE: Chest 2 View X-Ray INDICATIONS: ACUTE COUGH TECHNIQUE: 2 view(s) of the chest. COMPARISON: Chest x-ray 10/18/2020 FINDINGS: Surgical changes and devices: None. Lungs and pleura: No pleural effusions or pneumothorax. Lungs are clear. Mediastinum: Mediastinal contours are normal. Heart size is normal. Bones and chest wall: No suspicious bony abnormalities. Soft tissues appear unremarkable. IMPRESSION: No acute pulmonary process. Reviewed by: Lisa Rodriguez MD on 06/27/2021 5:13 PM PDT Approved by: Lisa Rodriguez MD on 06/27/2021 5:13 PM PDT Station ID: [id number]
== END 2021-06-27 23:59 | disposition home or self-care (01) ==
LOC: DI.N 08:00
PROVIDERS: ATTEND Physician Assistant Medical
DX: R05.1 Acute cough (principal)

== ENCOUNTER 2021-06-27 08:00 | Outpatient (CLI) | payer MEDICAID | END 2021-06-27 23:59 | disposition home or self-care (01) | LOC: LAB.N 08:00 | PROVIDERS: ATTEND Physician Assistant Medical | DX: B34.9 Viral infection, unspecified (principal); Z20.822 Contact with and (suspected) exposure to COVID-19 ==

== ENCOUNTER 2021-10-15 08:00 | Outpatient (CLI) | payer MEDICAID ==
[2021-10-15 21:02] LABS: CHLAMYDIA TRACHOMATIS DNA NEGATIVE (NEGATIVE); NEISSERIA GONORRHOEAE DNA NEGATIVE (NEGATIVE); TRICHOMONAS VAGINALIS DNA NEGATIVE (NEGATIVE)
== END 2021-10-15 23:59 | disposition home or self-care (01) ==
LOC: LAB.WCP 08:00
PROVIDERS: ATTEND Nurse Practitioner
DX: Z11.3 Encounter for screening for infections with a predominantly sexual mode of transmission (principal)
CPT/HCPCS: 87491; 87591; 87661

== ENCOUNTER 2022-02-25 15:54 | Outpatient (CLI) | payer OTHER ==
--- NOTE | 2022-02-27 22:38 | SLEEP CARE CONSULTATION ---
Information from patient questionnaire entered by Johan Fernandez MA. I have reviewed and concur with the information entered by Johan Fernandez MA. This document represents the service I personally performed and the decisions made by me, Yaz Mulligan MD, [facility]. History of Present Illness Service Date and Time: 02/25/2022 1554 Reason for follow up: annual (LAST SEEN 12/21/2019, NARCOLEPSY, ) Prior sleep studies: Yes HPI additional information: HPI: Ms. Webster was called for follow up of suspected narcolepsy. The diagnosis was not clear because she also takes Suboxone which could cause excessive daytime sleepiness. The patient reports jitteriness and feeling social awkwardness on modafinil. She stopped taking it after 2 doses. Her psychiatrist started her on Wellbutrin which helps with the sleep paralysis. Recently, however, she has been falling asleep driving and talking to people. She continues to take Suboxone for history of drug abuse. She says that the does is much lower than 2 years ago. She goes to bed at 9 pm and gets up at 6 am. Sleep Study - Results Prior sleep studies: Yes Subjective Initial [place] Sleepiness Scale score: 14 Allergies and Home Medications Drug allergies reviewed: Yes Home medication list reviewed: Yes Allergy and home medication list: Allergies No Known Drug Allergies Allergy (Verified 04/08/21 13:39) Review of Systems Review of systems same as previous: Yes Physical Exam Vital signs obtained and entered by: JOE RUCKER Height: 5 ft 3 in Impression and Plan IMPRESSION: 1. Sleep Paralysis, possibly from narcolepsy. The diagnosis of narcolepsy remains uncertain at this time. Because she is very sleepy despite allowing herself 9 hours for sleeping every night, I will let her try modafinil again. A multiple sleep latency test (MSLT) will be repeated when she can come off Suboxone altogether. With her history of substance abuse, a clear diagnosis of narcolepsy will have to be made before prescription for controlled substance such as methylphennidate and dextroamphetamine can be made. PLAN: 1. Try modafinil again 100 200 mg in the morning. 2. control by abstinence in addition to the hormonal IUD. She will switch to copper IUD. 3. Return to the sleep clinic in one month for a follow up. Prescriptions: Other (modafinil 100 mg) Follow up with Sleep Care in: 1-2 months Visit Type: Telehealth ANISA MOREJON CMA) Patient Location: Office Location of Provider: Office Patient agrees and consents to this telehealth visit type: Yes Patient agrees to have their insurance billed: Yes Time Spent with Patient (minutes): 12 Provider Statement: I spent 100% of the Telehealth Phone Call with the patient with greater than 50% spent counseling the patient and coordination of care.
== END 2022-02-25 15:55 | disposition home or self-care (01) ==
LOC: SC 15:54
PROVIDERS: ATTEND Internal Medicine Pulmonary Disease
DX: G47.53 Recurrent isolated sleep paralysis (principal)

== ENCOUNTER 2023-04-21 14:24 | Outpatient (CLI) | payer OTHER ==
--- NOTE | 2023-04-21 13:44 | SLEEP CARE CONSULTATION ---
Information from patient questionnaire entered by Blu Santos. I have reviewed and concur with the information entered by Blu Santos. This document represents the service I personally performed and the decisions made by me, Yaz Mulligan MD, [facility]. History of Present Illness Service Date and Time: 04/21/2023 1340 Reason for follow up: annual (LAST SEEN 03/2022 NARCOLEPSY) Prior sleep studies: Yes HPI additional information: This is a video telemed visit HPI: Ms. Webster was called for follow up of suspected narcolepsy. The diagnosis was not clear because she also takes Suboxone which could cause excessive daytime sleepiness. She took modafinil until about a year ago when she became . She had jitteriness and feeling social awkwardness on modafinil in the past but not this time around. She reports significant improvement in her excessive daytime sleepiness with 1 2 tabs a day (one tab in the morning and to 1 tab at noon). She denies having headache. She presently complains of e xcessive daytime sleepiness and would like to restart modafinil. Sleep Study - Results Prior sleep studies: Yes Subjective Initial [place] Sleepiness Scale score: 14 Current [place] Sleepiness Scale score: 24 (04/21/23) Allergies and Home Medications Drug allergies reviewed: Yes Home medication list reviewed: Yes Allergy and home medication list: Allergies No Known Drug Allergies Allergy (Verified 04/18/23 10:35) Review of Systems Review of systems same as previous: Yes Physical Exam Vital signs obtained and entered by: BLU Webb MA Height: 5 ft 3 in (PER PT) Weight: 200 lb (PER PT) Body Mass Index: 35.4 BMI Classification: Obese Impression and Plan IMPRESSION: 1. Sleep Paralysis, possibly from narcolepsy. The diagnosis of narcolepsy remains uncertain at this time. A multiple sleep latency test (MSLT) can be repeated when she can come off Suboxone altogether. In the meantime, she may stay on modafinil 100 200 mg a day. PLAN: 1. Refill modafinil 100 mg qd b.i.d. #60 with 4 refills through [facility] in [facility]. 2. Return to the sleep clinic in one year for a follow up. Follow up with Sleep Care in: 1 year Visit Type: In Office Video Type: Doximity Patient Location: Home Location of Provider: Office Patient agrees and consents to this telehealth visit type: Yes Patient agrees to have their insurance billed: Yes Time Spent with Patient (minutes): 15 Provider Statement: I spent 100% of the Face to Face Visit with the patient with greater than 50% spent counseling the patient and coordination of care.
== END 2023-04-21 14:25 | disposition home or self-care (01) ==
LOC: SC 14:24
PROVIDERS: ATTEND Internal Medicine Pulmonary Disease
DX: G47.53 Recurrent isolated sleep paralysis (principal); E66.9 Obesity, unspecified; Z68.35 Body mass index [BMI] 35.0-35.9, adult